=== PATIENT | male | born 1990 | race Caucasian/White ===

== ENCOUNTER 2021-10-16 22:26 | Emergency (ER) | payer MEDICAID ==
[~2021-10-16] VITALS: Ht 167.6 cm; Wt 122.5 kg
[2021-10-16 22:40] VITALS: BP 143/90
--- NOTE | 2021-10-16 22:43 | NUR ---
TO LOBBY A/W BED AMBULATORY
--- NOTE | 2021-10-16 23:00 | NUR ---
PT IS A 31 Y/O M BIB SELF WITH C/O OF RIGHT MOUTH PAIN. PT SAID HE HAD DENTAL WORK DONE 10 DAYS AGO AND DENTIST GAVE HIM ANTIBIOTICS. PT TOOK ANTIBIOTICS PRESCRIBED. LAST DOSE WAS ON 10/16/21 AND PAIN CAME RIGHT BACK. PT DENIES ANY FEVER/V/ DIARRHEA/CHEST PAIN/SOB BUT DOES GET NAUSEATED WHEN THE PAIN IS THAT INTENSE. PT HAS A FOLLOWUP VISIT WITH DENTIST IN 2 DAYS. PT HAS NO PRIOR HEALTH HX AND HAS NKA.
--- NOTE | 2021-10-17 00:02 | NUR ---
PT AMBUALTED TO BED #1
[2021-10-17] MEDS ORDERED: KETOROLAC 60 MG/2 ML VIAL IM ONE (00:45)
[2021-10-17] MEDS ORDERED: AMOX-1000 PO (00:49)
[2021-10-17] MEDS ORDERED: BENZ20GE11 MM (00:49)
[2021-10-17] MEDS ORDERED: AMOXIL/CLAVULANATE 875/125 MG 1 TAB PO ONE (00:55)
[2021-10-17] MEDS ORDERED: AMOXIL/CLAVULANATE 875/125 MG 1 TAB ONE (00:55)
--- NOTE | 2021-10-17 01:08 | NUR ---
PT WANTS TO ASK DR WHY HE CANT GET STRONGER PAIN KILLERS. SAID SHE WANTS HIM TO TAKE ANTIBIOTC TO CLEAR UP THE INFECTION.
[2021-10-17 01:12] VITALS: BP 143/90
--- NOTE | 2021-10-17 01:12 | NUR ---
Patient discharged with v/s stable. Written and verbal after care instructions given and explained. Patient alert, oriented and verbalized understanding of instructions. Ambulatory with steady gait. All questions addressed prior to discharge. ID band removed. Patient advised to follow up with PMD. Rx of AUGMENTIN AND ORAJEL given. Opportunity to ask questions provided and answered.
--- NOTE | 2021-10-17 01:30 | NUR ---
The patient's care was reviewed and supervised by Martha Jaffe RN.
== END 2021-10-17 01:12 | disposition home or self-care (01) ==
LOC: MED 22:26
DX: K01.1 Impacted teeth (principal); Z79.899 Other long term (current) drug therapy
CPT/HCPCS: 96372; 99283; J1885

== ENCOUNTER 2022-04-09 20:37 | Emergency (ER) | payer MEDICAID ==
[~2022-04-09] VITALS: Ht 167.6 cm; Wt 119.4 kg
[~2022-04-09 20:37] MED LIST: AMOX-1000 PO; BENZ20GE11 MM
[2022-04-09 20:58] VITALS: BP 149/76
--- NOTE | 2022-04-09 21:03 | NUR ---
PT BACK IN LOBBY.
== END 2022-04-09 23:17 | disposition left against medical advice (07) ==
LOC: MED 20:37
DX: J34.89 Other specified disorders of nose and nasal sinuses (principal); Z53.21 Procedure and treatment not carried out due to patient leaving prior to being seen by health care provider